=== PATIENT | male | born 1965 | race Caucasian/White ===

== ENCOUNTER 2019-12-08 10:38 | Emergency (ER) | payer SELFPAY ==
--- NOTE | 2019-12-08 10:59 | XRR_ITS ---
PROCEDURE INFORMATION: Exam: XR Right Hip with Pelvis when Performed Exam date and time: 12/08/2019 11:33 AM Age: 54 years old Clinical indication: Injury or trauma; Initial encounter; Sprain or strain; Right; Hip; Prior surgery; Patient HX: Moving furniture, now non weight bearing and foot numbness TECHNIQUE: Imaging protocol: XR Right hip with pelvis when performed. Views: 1 view. COMPARISON: CR Arthrogram Hip RIGHT [id number] 01/23/2014 1:40 PM FINDINGS: Bones/joints: Right hip arthroplasty. No acute bony injury or malalignment in the visualized right hip. Soft tissues: Metallic zipper. Other findings: Status post herniorrhaphy. XR/XR hip RT 2-3V wo/w pel* [id number] IMPRESSION: Right hip arthroplasty. No acute bony injury or malalignment in the visualized right hip.
[2019-12-08 11:13] VITALS: BP 164/97; PULSE 86; RESP 14; TEMP 36.9; O2SAT 99; BMI 34.8
--- NOTE | 2019-12-08 11:19 | W.ED.EXTPRO ---
HPI - Extremity Problem General: Chief complaint: Extremity Problem,Nontraumatic Stated complaint: RIGHT HIP PAIN Time Seen by Provider: 12/08/19 11:19 History of Present Illness: HPI Narrative: Patient with a history of hip replacement right side. Patient states he was lifting some the other day then felt pain in his right hip is progressively got worse now radiating down his leg has had muscle cramps in the right upper thigh and now has some tingling in his toes. Denies any low back pain at this time MD Complaint: extremity pain and joint pain (Right hip) Onset (ago): week(s) Pain Consistency: constant Location: right and lower extremity Severity scale (1-10): 6 Quality: aching Radiation: distal Relieving factors: immobilization and rest Exacerbating factors: range of motion and weight bearing Associated symptoms: Reports no associated symptoms; Deny chest pain, fever(s) or rash Review of Systems Const: Denies: fever(s), chills or body aches Eyes: Denies: change in vision or blurry vision ENMT: Denies: throat pain or nasal congestion Card: Denies: chest pain or dyspnea on exertion Resp: Denies: dyspnea, productive cough or non-productive cough GI: Denies: abdominal pain, nausea or vomiting : Denies: difficulty urinating Musc: Reports: joint pain (Right hip) and muscle cramps (Right thigh); Denies: extremity pain Skin/Breast: Denies: rash Neuro: Denies: headache(s) Psych: Denies: anxiety or depression Kartik/Lymph: Denies: easy bruising Physical Exam Const: COMMON NORMALS: no acute distress, average body habitus and patient oriented x3 HENMT: COMMON NORMALS: normocephalic HEAD & SCALP: normal to inspection and normocephalic FACE & SINUS: normal facial exam Eye: COMMON NORMALS: conjunctivae normal GENERAL EYE: appearance normal, both eyes and all related structures CONJUNCTIVA: Yes conjunctivae normal Neck/C-Spine: COMMON NORMALS: no JVD Chest: COMMONS NORMALS: normal inspection of the chest Resp: COMMON NORMALS: normal respiratory effort and clear to auscultation bilaterally AUSCULTATION: clear to auscultation bilaterally Cardio: COMMON NORMALS: no JVD, regular rate and regular rhythm RATE: regular rate RHYTHM: regular rhythm GI: COMMON NORMALS: Normal to inspection, nondistended, normoactive bowel sounds present Extremity: NARRATIVE EXTREMITY EXAM: Pain to right hip joint with range of motion and straight leg lift is able to lift both legs at the same time but causes pain in the right hip neurovascular status is fine distal of this pain Neuro: COMMON NORMALS: patient oriented x3 Course Vital Signs: Vital signs: Vital Signs Temperature 98.4 F 12/08/19 11:13 Pulse Rate 77 12/08/19 11:57 Respiratory Rate 14 12/08/19 11:13 Blood Pressure 142/81 12/08/19 11:57 Pulse Oximetry 98 12/08/19 11:57 Discharge Plan Discharge Patient Disposition: Home, Self-Care Clinical Impression: Sciatic leg pain Condition: Stable Prescriptions: New ibuprofen 800 mg tablet 800 mg PO TID PRN (Reason: pain) Qty: 20 RF: 0 Discharge Orders: Discharge Order (Routine); Ordered 12/08/19 Ordered By: Noe Yang Referrals: Yaz Villalta MD [Primary Care Provider] - Discharge Diet: Usual diet Discharge Activity: Increase activity as tolerated Patient Instructions: Sciatica (ED) Activity Restrictions/Additional Instructions: Follow-up with medical provider as directed. Take medications as prescribed. Return to the ER or your medical provider if condition worsens. Please read and understand discharge instructions. If any questions ask please. No heavy lifting x4 weeks follow-up with your family doctor and see back in MRI if pain continues Coding Level of Care Code ED Physical Therapy Supervisor for Madeleine Fwd Exam Comprehensive
[2019-12-08] MEDS: ketorolac 60 mg/2 mL INJ IM (11:41)
[2019-12-08 11:57] VITALS: BP 142/81; PULSE 77; O2SAT 98
[2019-12-08] MEDS: methylPREDNISolone (DEPO) 80 MG/ML INJ 1 mL IM (12:19)
[2019-12-08 12:41] VITALS: BP 160/91; PULSE 78; O2SAT 96
== END 2019-12-08 12:41 | disposition home or self-care (01) ==
PROVIDERS: Emergency Provider Nurse Practitioner Family; PCP Family Medicine
DX: M54.30 Sciatica, unspecified side (principal)
CPT/HCPCS: 12345; 73502; 96372; 99281; 99283; J1040; J1885

== ENCOUNTER 2019-12-12 11:35 | Emergency (ER) | payer SELFPAY ==
[2019-12-12 12:03] VITALS: BP 142/88; PULSE 98; RESP 16; TEMP 36.9; O2SAT 97; BMI 34.8
--- NOTE | 2019-12-12 12:12 | W.ED.EXTPRO ---
HPI - Extremity Problem General: Chief complaint: Extremity Problem,Nontraumatic Stated complaint: RIGHT HIP AND LEG PAIN Time Seen by Provider: 12/12/19 12:09 History of Present Illness: HPI Narrative: Patient is a 54-year-old male who comes to the ED with lower back pain that is radiating down the right leg. Patient was seen here in the ED on 12/07 and diagnosed with sciatic leg pain. Symptoms started approximately 2 weeks ago and he denies any known acute trauma, accident or injury to cause back pain. Patient states he thinks he got up from lifting some stuff around the house. Pain has progressed in the last 5 days. Patient returns to the ED due to worsening pain and numbness into the right leg. He says his pain is currently a 10 out of 10 he describes having numbness down to his feet and some numbness in the upper thigh/groin. He can hardly walk to go to the bathroom in his house. Any bladder or bowel incontinence, or pelvic anesthesia. He does endorse some numbness into the right leg. He states the numbness in the right leg is new since his last visit 4 days ago. Associated symptoms: Deny chest pain, fever(s) or rash Review of Systems Const: Denies: fever(s), chills or fatigue Eyes: Denies: change in vision or eye discomfort ENMT: Denies: throat pain, odynophagia, nasal discharge or nasal congestion Card: Denies: chest pain, palpitations, edema, swelling of feet/ankles, dyspnea on exertion or orthopnea Resp: Denies: dyspnea, productive cough or non-productive cough GI: Denies: abdominal pain, nausea, vomiting, diarrhea, constipation, fecal incontinence or hematochezia : Denies: flank pain, difficulty urinating, dysuria, urinary incontinence or hematuria Musc: Reports: back pain and extremity pain (right leg); Denies: neck pain or extremity swelling Skin/Breast: Denies: rash or new lesions Neuro: Reports: numbness in extremities (numbness in right leg (foot)); Denies: headache(s) or weakness in extremities PFS ED PFSH: Social History Smoking and tobacco status: current every day smoker cigarettes Alcohol intake: never Physical Exam Const: COMMON NORMALS: patient oriented x3 and alert HENMT: COMMON NORMALS: normocephalic HEAD & SCALP: normocephalic MOUTH: Normal oral and palatal mucosa present THROAT: posterior oropharynx normal and uvula midline Eye: COMMON NORMALS: Equal, round and reactive pupils present PUPIL: Yes Equal, round and reactive pupils present Neck/C-Spine: COMMON NORMALS: supple GENERAL: Yes normal visual inspection Resp: COMMON NORMALS: normal respiratory effort, No retractions, No use of accessory muscles and clear to auscultation bilaterally AUSCULTATION: clear to auscultation bilaterally Cardio: COMMON NORMALS: regular rate, regular rhythm, S1 normal heart sound present, S2 normal heart sound present, No gallops present (Cardio), No clicks present (Cardio), No murmurs present (Cardio) and Peripheral pulses 2+ throughout RATE: regular rate RHYTHM: regular rhythm HEART SOUNDS: S1 normal heart sound present and S2 normal heart sound present PERIPHERAL PULSES: Peripheral pulses 2+ throughout GI: COMMON NORMALS: Normal to inspection, nondistended, normoactive bowel sounds present, Soft to palpation, non-tender and no masses INSPECTION: Yes central obesity PALPATION: Yes Soft to palpation : COMMON NORMALS: Yes no CVA tenderness BLADDER/KIDNEY EXAM: Yes no CVA tenderness Back/Pelvis: COMMON NORMALS: no CVA tenderness LUMBAR SPINE/LOWER BACK: Yes paraspinal muscle tenderness and Yes straight leg raise positive right Extremity: COMMON NORMALS: normal to inspection and no pedal edema Neuro: COMMON NORMALS: patient oriented x3 and moves all extremities SENSORIUM/ORIENTATION: Yes alert Skin: COMMON NORMALS: no rashes or lesions noted GENERAL SKIN EXAM: no rashes or lesions noted and dry skin Course Vital Signs: Vital signs: Vital Signs Temperature 98.4 F 12/12/19 12:03 Pulse Rate 78 12/12/19 15:20 Respiratory Rate 18 12/12/19 15:20 Blood Pressure 142/79 12/12/19 15:20 Pulse Oximetry 98 12/12/19 15:20 MDM - Extremity (Nontraumatic) MDM Narrative: Medical decision making narrative: pt is a 54 y/o male that comes to the ED with lumbar pain with pain and numbness down right leg. denies any bladder/bowel incontinence or pelvic anesthesia. Pt was seen here in the ED on 12/07 and his biggest change in symptoms are increase in pain down right leg and numbness in foot of right leg is new. CT lumbar spine was showed no acute fractures, but L4-5 bulging disc with moderate to severe foraminal narrowing. Pt was given decadron IM while here in the ED and sent home with a medrol dose mustapha. I put an order in with case management for pt to be referred to neurosurgeon. return to ED if symptoms worsen. pt understood and agreed with plan. Imaging Data^: Other CT: Attestation: I personally reviewed and interpreted this imaging study as follows: Radiologist's impression: [facility] [address] [place] [address] CT Scan Report Signed Patient: Kristopher Marin Unit #: [id number] : 1965 Age/Sex: 54 / M ADM Date: 12/12/19 Loc: ER Room/Bed: Attending Dr: Ordering Provider/Ordering MD: Sam Villela Date of Service: 12/12/19 Procedure(s): CT lumbar spine wo con* [id number] Accession Number(s): [id number] Report Number: [id number] WS: [id number] CT LUMBAR SPINE TECHNIQUE: Noncontrast CT of the lumbar spine with coronal and sagittal reformatted images. CLINICAL INFORMATION: lumbar pain with numbness down right Leg COMPARISON: None. DLP: 2592.[address] scans at [facility] use at least one of these dose optimization techniques: automated exposure control; mA and/or kV adjustment per patient size (includes targeted exams where dose is matched to clinical indication); or iterative reconstruction. FINDINGS: Mild lumbar curve. No acute compression. No acute compression fractures. Disc bulging worse L4-L5 and L5-S1. L1-L2: Normal. L2-L3: No significant disc bulging. Moderate facet arthropathy. Spinal canal and foramen are patent. L3-L4: Mild annular bulging with a small central protrusion. Slight narrowing of the subarticular recess bilaterally. Moderate facet arthropathy. Foramen are patent. L4-L5: Mild disc bulging with a small central protrusion. Moderate central canal stenosis with impingement traversing L5 nerve roots bilaterally. Suggestion of disc material right subarticular recess. Moderate facet arthropathy ligament flavum hypertrophy. Moderate right greater than left foraminal narrowing. L5-S1: Small central shallow protrusion. Slight effacement of ventral thecal sac. Mild right and no significant left foraminal narrowing. Spinal canal is patent. Moderate facet arthropathy. Visualized pelvic bony structures: Normal. Paravertebral soft tissues: Normal. Attempted notification KOURTNEY Napier at 12/12/2019 2:[address]/CT lumbar spine wo con* [id number] IMPRESSION: 1. Mild lumbar curve convex left. No acute compression fractures. 2. Central disc protrusion L4-5 with moderate to severe central canal stenosis. Suggestion of disc material in the right subarticular recess. This can be further evaluated MRI. 3. Moderate right and mild left L4-5 foraminal narrowing. Impingement on the exiting right L4 nerve root 4. Tiny central protrusion L5-S1 with slight effacement of ventral thecal sac. Mild right foraminal narrowing. Dictated By: Brayden Reyes MD Signed By: Brayden Reyes MD Signed Date/Time: 12/12/191434 DD/ 24 Discharge Plan Discharge Patient Disposition: Home, Self-Care Clinical Impression: Bulging lumbar disc, Sciatic leg pain Condition: Stable Prescriptions: New Medrol (Mustapha) 4 mg tablets,dose pack See Rx Instructions .ROUTE .COMPLEX Qty: 21 RF: 0 No Action ibuprofen 800 mg tablet 800 mg PO TID PRN (Reason: pain) Qty: 20 RF: 0 Discharge Orders: Discharge Order (Routine); Ordered 12/12/19 Ordered By: Sam Villela Referrals: Yaz Villalta MD [Primary Care Provider] - Discharge Diet: Regular Discharge Activity: Increase activity as tolerated and Limit activity as instructed Patient Instructions: Lumbar Radiculopathy (ED) Activity Restrictions/Additional Instructions: Follow-up with medical provider in the next 7 days. Case management should be contacting you in the next several days to set up an appointment with neurosurgery. Take medications as prescribed. Continue taking ibuprofen as well to help with pain. Rest, stretch lower back daily and apply ice and/or heat for relief. return to the ER or your medical provider if condition worsens. Please read and understand discharge instructions. If any questions, please ask. Discharge Date/Time: 12/12/19 15:21 Coding Level of Care Code ED Senior Scrum Master for Chg Fwd Exam Comprehensive
[2019-12-12 12:36] VITALS: RESP 18
--- NOTE | 2019-12-12 12:51 | CT_ITS ---
WS: [id number] CT LUMBAR SPINE TECHNIQUE: Noncontrast CT of the lumbar spine with coronal and sagittal reformatted images. CLINICAL INFORMATION: lumbar pain with numbness down right Leg COMPARISON: None. DLP: 2592.[address] scans at [facility] use at least one of these dose optimization techniques: automat ed exposure control; mA and/or kV adjustment per patient size (includes targeted exams where dose is matched to clinical indication); or iterative reconstruction. FINDINGS: Mild lumbar curve. No acute compression. No acute compression fractures. Disc bulging worse L4-L5 and L5-S1. L1-L2: Normal. L2-L3: No significant disc bulging. Moderate facet arthropathy. Spinal canal and foramen are patent. L3-L4: Mild annular bulging with a small central protrusion. Slight narrowing of the subarticular rec ess bilaterally. Moderate facet arthropathy. Foramen are patent. L4-L5: Mild disc bulging with a small central protrusion. Moderate central canal stenosis with imping ement traversing L5 nerve roots bilaterally. Suggestion of disc material right subarticular recess. M oderate facet arthropathy ligament flavum hypertrophy. Moderate right greater than left foraminal charlie rowing. L5-S1: Small central shallow protrusion. Slight effacement of ventral thecal sac. Mild right and no s ignificant left foraminal narrowing. Spinal canal is patent. Moderate facet arthropathy. Visualized pelvic bony structures: Normal. Paravertebral soft tissues: Normal. Attempted notification KOURTNEY Napier at 12/12/2019 2:[address]/CT lumbar spine wo con* [id number] IMPRESSION: 1. Mild lumbar curve convex left. No acute compression fractures. 2. Central disc protrusion L4-5 with moderate to severe central canal stenosis . Suggestion of disc material in the right subarticular recess. This can be fur ther evaluated MRI. 3. Moderate right and mild left L4-5 foraminal narrowing. Impingement on the e xiting right L4 nerve root 4. Tiny central protrusion L5-S1 with slight effacement of ventral thecal sac. Mild right foraminal narrowing.
[2019-12-12] MEDS: HYDROcodone-acetaminophen 7.5-325 mg Tablet 1 TAB PO (13:11)
[2019-12-12] MEDS: dexamethasone 10 mg/mL INJ IM (13:12)
[2019-12-12 14:07] VITALS: RESP 18
--- NOTE | 2019-12-12 14:14 | PC.NURSE ---
WHILE AT BEDSIDE ASKED PT IF IT WAS OKAY TO GIVE OUT PERSONAL INFORMATION FOR PEOPLE CALLING THAT IDENTIFIED FAMILY. PT STATED, THAT'S FINE . INFORMED DORIAN SAMPSON OF PT PRESENCE AND CONDITION IN THE ER.
[2019-12-12 15:20] VITALS: BP 142/79; PULSE 78; RESP 18; O2SAT 98
--- NOTE | 2019-12-13 13:35 | DCPLANNER ---
Addendum entered by Yuko Rodríguez 12/19/19 11:57: Patient called correctional case records supervisor left message for correctional case records supervisor to call patient about neuro referral. regional program manager called phone number [phone], left a voicemail for patient to return case packer phone call. regional program manager also called phone number [phone], there was no answer at this number, and correctional case records supervisor left a message for patient to return case packer phone call. Original Note: regional program manager had message to schedule a follow up appointment for patient with neuro surgery. regional program manager called patient, to discuss who patient would like for correctional case records supervisor to make the referral for patient to, since [facility] [place] longer has a provider for neuro surgery. regional program manager called [phone], unable to speak with patient at this time, a voicemail was left for patient to return case packer phone call.
--- NOTE | 2019-12-19 15:18 | DCPLANNER ---
manager agriculture did make a referral for patient to the new spine physician that will be at the ortho clinic. manager agriculture spoke with Diana, gave clinic patients information. manager agriculture was told that patients information would be printed and reviewed. Patient has been added to the waiting list that has been started for physician. Clinic will call patient with appointment information.
--- NOTE | 2019-12-20 11:47 | DCPLANNER ---
Patient called patient case manager asking about referral to a neuro surgeon. manager of engineering informed patient that patient case manager made a referral for patient to the new spine physician that will be starting in February. manager of engineering was told that patient would like for patient case manager to refer patient to [place] to both [facility] and [facility] so that patient can see which one would be able to see him faster. manager of engineering faxed patients records to both [facility] and [facility], will call for appointment information.
--- NOTE | 2020-01-05 14:52 | DCPLANNER ---
human resources benefits manager called [facility] to confirm that a follow up appointment had been scheduled for patient. human resources benefits manager was told that an appointment had been scheduled for 01.04.20 -patient did not attend this appointment. human resources benefits manager called the [facility], [facility], to confirm if an appointment had been scheduled for patient, spring encaser was told that an appointment had been scheduled for , January 17, 2020 at 10:30 and patient was called with appointment information.
--- NOTE | 2020-03-01 13:36 | DCPLANNER ---
Patient had a follow up appointment scheduled for 02.17.[address] Hyde for [facility] [address] - patient did attend the appointment.
== END 2019-12-12 15:21 | disposition home or self-care (01) ==
PROVIDERS: Emergency Provider Physician Assistant; PCP Family Medicine
DX: M51.16 Intervertebral disc disorders with radiculopathy, lumbar region (principal); F17.210 Nicotine dependence, cigarettes, uncomplicated
CPT/HCPCS: 12345; 72131; 96372; 99281; 99283; J1100

== ENCOUNTER → 2022-04-14 10:02 | Outpatient (BNVA) | payer MEDICAID, SELFPAY | PROVIDERS: PCP Family Medicine; Visit Provider Physician Assistant | DX: M48.062 Spinal stenosis, lumbar region with neurogenic claudication (principal); M47.816 Spondylosis without myelopathy or radiculopathy, lumbar region; B07.0 Plantar wart | CPT/HCPCS: 72110; 99213 ==

== ENCOUNTER → 2022-04-30 08:17 | Outpatient (BNVA) | payer MEDICAID, SELFPAY | PROVIDERS: PCP Family Medicine; Visit Provider Podiatrist Foot & Ankle Surgery | DX: I73.9 Peripheral vascular disease, unspecified (principal); Q82.8 Other specified congenital malformations of skin; B35.1 Tinea unguium | CPT/HCPCS: 99204 ==

== ENCOUNTER 2022-06-03 12:33 | Outpatient (CLI) | payer MEDICAID, SELFPAY ==
--- NOTE | 2022-06-03 12:49 | CT_ITS ---
WS: [id number] LDCT LUNG CANCER SCREENING TECHNIQUE: Noncontrast CT of the chest with coronal and sagittal reformatted images. CLINICAL INFORMATION: NICOTINE DEPENDENCE, CIGARETTES COMPARISON: CT chest 2016 DLP: 83.79 mGy.cm DIvol: Mean CTDIvol: 1.60 (mGy) All CT scans at [facility] use at least one of these dose optimization techniques: automat ed exposure control; mA and/or kV adjustment per patient size (includes targeted exams where dose is matched to clinical indication); or iterative reconstruction. FINDINGS: Normal caliber thoracic aorta. Mild aortic calcification. No mediastinal or hilar lymphadenopathy. No axillary lymphadenopathy. Tiny nodule RIGHT upper lobe anteriorly measuring 3.8 mm. Diffuse fatty infiltration of the liver. Hepatomegaly. Partially visualized cholecystectomy clips. No rmal GE junction. Adrenal glands are normal. Mild thoracic curve. Mild thoracic kyphosis. A few calci fied granulomas. CT/CT lung screening [id number] IMPRESSION: LUNG-RADS: 2-Benign Appearance or Behavior FOLLOW UP: 12 Month: Continue annual screening with LDCT
== END 2022-06-03 12:34 | disposition home or self-care (01) ==
LOC: RAD 12:34
PROVIDERS: PCP Family Medicine; Visit Provider Family Medicine
DX: Z12.2 Encounter for screening for malignant neoplasm of respiratory organs (principal); F17.210 Nicotine dependence, cigarettes, uncomplicated
CPT/HCPCS: 71271

== ENCOUNTER 2022-06-05 06:51 | Outpatient (CLI) | payer MEDICAID, SELFPAY ==
--- NOTE | 2022-06-05 07:15 | MR_ITS ---
WS: [id number] MRI LUMBAR SPINE NONCONTRAST TECHNIQUE: Sagittal T1, T2 and STIR imaging. Axial T1 and T2 imaging. CLINICAL INFORMATION: pain COMPARISON: Outside MRI January 29, 2020 FINDINGS: Mild lumbar curve. No acute compression. Slight anterolisthesis L4 on L5. Small bilateral L4-L5 facet effusions. Mild to moderate central canal stenosis in the cervical spine district [employer] imaging at C5-C6 with a small central disc protrusion. Suggestion of myelomalacia in the cervical cord is level. Recommend further evaluation with cervical spine MRI. L1-L2: Normal. L2-L3: Mild facet arthropathy. Spinal canal and foramen are patent. L3-L4: Mild annular bulging with slight effacement of ventral thecal sac. Slight impingement traversi ng L4 nerve roots bilaterally. Mild facet arthropathy. Foramen are patent. Tiny annular fissure at th is level. L4-L5: Moderate central canal stenosis due to slight anterolisthesis in combination with disc bulging and facet arthropathy with ligamentum flavum hypertrophy. Moderate facet arthropathy. Mild to modera te RIGHT and no significant LEFT foraminal narrowing. L5-S1: No significant disc bulging. Mild facet arthropathy. Spinal canal and foramen are patent. Visualized pelvic bony structures: Normal. Paravertebral soft tissues: Normal. MR/MR lumbar spine wo con* [id number] IMPRESSION: No remarkable changes since January 29, 2020 1. Mild lumbar curve. No acute compression. 2. Moderate central canal stenosis L4-L5 with impingement on traversing L5 ner ve roots bilaterally. Slight anterolisthesis in combination with facet arthropa thy and ligamentum flavum hypertrophy. 3. Mild to moderate RIGHT L4-L5 foraminal narrowing. 4. Tiny shallow central protrusion L3-L4 with a tiny annular fissure. Slight e ffacement of ventral thecal sac. 5. Tiny central protrusion C5-C6 cervical spine [employer] imaging with mild to mod erate central canal stenosis. Suggestion of myelomalacia in the cervical cord a t this level. Recommend further evaluation with cervical spine MRI. 6. Small bilateral L4-L5 facet effusions compatible with synovitis. This can b e seen with instability.
== END 2022-06-05 06:52 | disposition home or self-care (01) ==
LOC: RAD 06:52
PROVIDERS: PCP Family Medicine; Visit Provider Physician Assistant
DX: M48.061 Spinal stenosis, lumbar region without neurogenic claudication (principal); M51.26 Other intervertebral disc displacement, lumbar region; M50.222 Other cervical disc displacement at C5-C6 level
CPT/HCPCS: 72148

== ENCOUNTER → 2022-07-30 08:46 | Outpatient (BNVA) | payer MEDICAID, SELFPAY | PROVIDERS: PCP Family Medicine; Visit Provider Physician Assistant | DX: M48.062 Spinal stenosis, lumbar region with neurogenic claudication (principal); M47.816 Spondylosis without myelopathy or radiculopathy, lumbar region; M40.50 Lordosis, unspecified, site unspecified | CPT/HCPCS: 72050 ==

== ENCOUNTER 2022-09-15 07:50 | Outpatient (CLI) | payer MEDICAID, SELFPAY ==
--- NOTE | 2022-09-15 08:00 | MR_ITS ---
WS: [id number] MRI CERVICAL SPINE NONCONTRAST TECHNIQUE: Sagittal T1, T2 and STIR imaging. Axial T2, gradient, and fiesta imaging. CLINICAL INFORMATION: M54.12 - Radiculopathy, cervical region COMPARISON: None. FINDINGS: Straightening of the normal cervical lordosis. Chronic myelomalacia in the cervical cord at C5-C6 wit h slight indentation on the cervical cord. 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 C2-C3: Disc osteophytic ridging. Mild facet arthropathy. Mild to moderate bilateral bony foraminal na rrowing. Mild central canal stenosis. C3-C4: Mild disc osteophyte complex with endplate ridging. Mild facet arthropathy. Moderate LEFT grea ter than RIGHT bony foraminal narrowing. Mild facet arthropathy. C4-C5: Mild disc bulging with osteophytic ridging. Moderate bilateral bony foraminal narrowing LEFT g reater than RIGHT. Mild to moderate facet arthropathy. Mild central canal stenosis. C5-C6: Shallow disc protrusion with indentation on cervical cord. Moderate central canal stenosis. Mo derate bilateral bony foraminal narrowing. Moderate facet arthropathy. C6-C7: Mild disc bulging with osteophytic ridging. Mild facet arthropathy. Mild to moderate bilateral foraminal narrowing. Mild facet arthropathy. C7-T1: Mild bilateral bony foraminal narrowing. Spinal canal is patent. Mild facet arthropathy. Visualized brain stem structures: Normal. Prevertebral soft tissues: Normal. MR/MR cervical spin wo con* [id number] IMPRESSION: 1. 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 2. Straightening of the normal cervical lordosis. Chronic myelomalacia in the cervical cord at C5-C6. 3. Moderate central canal stenosis at C5-C6 with shallow central disc protrusi on with slight indentation on cervical cord. 4. Mild central canal stenosis C2-C3, C3-C4, C4-C5. 5. Multilevel mild to moderate bony foraminal narrowing worse at bilateral C3- C4, bilateral C4-C5, bilateral C5-C6. 6. Mild to moderate facet arthropathy throughout the cervical spine.
== END 2022-09-15 07:51 | disposition home or self-care (01) ==
LOC: RAD 07:52
PROVIDERS: PCP Family Medicine; Visit Provider Anesthesiology Pain Medicine
DX: M47.812 Spondylosis without myelopathy or radiculopathy, cervical region (principal); M48.02 Spinal stenosis, cervical region; M50.122 Cervical disc disorder at C5-C6 level with radiculopathy
CPT/HCPCS: 72141

== ENCOUNTER → 2022-10-27 09:10 | Outpatient (BNVA) | payer MEDICAID, SELFPAY | PROVIDERS: PCP Family Medicine; Visit Provider Anesthesiology Pain Medicine | DX: M25.512 Pain in left shoulder (principal); Z98.890 Other specified postprocedural states | CPT/HCPCS: 73030 ==

== ENCOUNTER 2022-12-16 09:16 | Outpatient (CLI) | payer MEDICAID, SELFPAY ==
--- NOTE | 2022-12-16 09:26 | XR_ITS ---
WS: [id number] Exam: XR abdomen 3V [id number] Date/Time of Exam: 12/16/2022 9:37 AM Reason For Exam: RUQ ABDOMINAL PAIN No bowel obstruction or free air. No sign of organ enlargement. Signs of prior cholecystectomy. Posto perative changes in the pelvis which may be secondary to the surgical mesh. Partially visualized righ t total hip replacement. Vertebral compression deformities of the lower thoracic and upper lumbar spi pr XR/XR abdomen 3V [id number] IMPRESSION: 1. No acute abdominal finding. 2. Postoperative changes.
== END 2022-12-16 09:17 | disposition home or self-care (01) ==
PROVIDERS: PCP Family Medicine; Visit Provider Family Medicine
DX: R10.11 Right upper quadrant pain (principal); Z90.49 Acquired absence of other specified parts of digestive tract; Z96.641 Presence of right artificial hip joint
CPT/HCPCS: 74021

== ENCOUNTER → 2023-01-19 11:33 | Outpatient (BNVA) | payer MEDICAID, SELFPAY | PROVIDERS: PCP Family Medicine; Visit Provider Orthopaedic Surgery | DX: M47.12 Other spondylosis with myelopathy, cervical region (principal) | CPT/HCPCS: 72040 ==

== ENCOUNTER 2023-03-26 09:53 | Day surgery (SDC) | payer MEDICAID, SELFPAY ==
[2023-03-26 10:07] VITALS: BP 147/88; PULSE 95; RESP 18; TEMP 36.2; O2SAT 97; BMI 35.4
[2023-03-26] MEDS: sodium chloride 0.9% 1,000 ML 30 ML IV (10:12)
[2023-03-26 10:19] LABS: Glucose Point of Care 285 mg/dL (70-110)
--- NOTE | 2023-03-26 10:31 | W.PM.OPSFHP ---
Same Day Surgery H&P Indication for Procedure/HPI DATE OF PROCEDURE: March 26, 2023 CHIEF COMPLAINT/INDICATIONFOR SURGICAL PROCEDURE: reflux PREOP DIAGNOSIS: reflux PLANNED PROCEDURE: Operation Date: 03/26/23 11:15 Proposed Procedures p EGD 73619,K21.9(Not Applicable) - Taran Azevedo MD Medications/Allergies* Home Medications Medication Instructions Recorded Confirmed Type duloxetine 20 mg capsule,delayed 20 mg PO BID 04/14/22 03/24/23 History release lisinopril 10 mg tablet 10 mg PO DAILY 04/14/22 03/24/23 History metformin 500 mg tablet 500 mg PO BID 04/14/22 03/26/23 History omeprazole 40 mg capsule,delayed 40 mg PO DAILY 04/14/22 03/24/23 History release dulaglutide 3 mg/0.5 mL 3 mg SUBCUT DIRECTED 03/24/23 03/24/23 History subcutaneous pen injector (Trulicity) Allergies/Adverse Reactions Allergy/AdvReac Type Severity Reaction Status Date / Time morphine Allergy ALGY-Rash Verified 03/24/23 12:29 Penicillins Allergy ALGY-Rash Verified 03/24/23 12:29 contrast media Allergy ALGY-Anaphy Uncoded 03/10/23 13:09 laxis Current Medications: Generic Name Dose Route Start Last Admin Trade Name Guille PRN Reason Stop Dose Admin Sodium Chloride 1,000 mls @ 30 mls/hr 03/26/23 10:00 03/26/23 10:12 Sodium Chloride 0.9% IV 03/27/23 09:59 30 mls/hr .Q24H MARCUS Administration Pertinent History/Comorbid Conditions* Medical History (Updated 02/15/23 @ 20:16 by Taran Nugent DPM) Diabetes Social History Smoking and tobacco/nicotine status: current every day tobacco/nicotine user cigarettes Packs smoked per day: 1 Alcohol intake: current Alcohol intake frequency: holidays/special occasions only Substance/Drug Use: never Pertinent Exam Findings alert, oriented x 3, clear to auscultation bilaterally and regular rate & rhythm Recommendations Surgery/Procedure today Coding Level of Care Code Acute Code for Chg Fwd Diagnoses
--- NOTE | 2023-03-26 11:08 | ANES.PREANE2 ---
Pre-Anesthetic Assessment Height/Weight: Height 1.8 m Weight 115.212 kg Temp Pulse Resp BP Pulse Ox O2 Del Method 97.2 F L 95 18 147/88 97 Room Air 03/26/23 10:07 03/26/23 10:07 03/26/23 10:07 03/26/23 10:07 03/26/23 10:07 03/26/23 10:07 Preop Diagnosis: reflux Operation Date: 03/26/23 11:15 Proposed Procedures p EGD 80180,K21.9(Not Applicable) - Taran Azevedo MD Familial anesthetic complications: none Was Beta Edward taken within 24 hours: N/A Last intake: Intake Last Liquid Date 03/25/23 Last Liquid Time 23:59 Last Solid Date 03/25/23 Last Solid Time 22:30 Social Tobacco (1 ppd) cannabis weekly hasn't smoked in 3 days. Exam alert, oriented x 3, clear to auscultation bilaterally and regular rate & rhythm Airway Submandibular: within normal limits Cervical ROM: within normal limits Mallampati: Class II Dentition: false (no teeth no dentures present) Pulmonary None reported denies COPD 1ppd x 43 years CV/HEM Hypertension None reported Hepatic None reported GI Gastroesophageal Reflux Disease (no symptoms ) abdominal pain Metabolic Diabetes Mellitus and Morbid Obesity on GLP1 inhibitor last taken 03/13 BG - 285 hasn't taken metformin today or last night (bid dosing) Musc/skel Lower Back Pain Neuropsych None reported Anesthetic Plan ASA status: 3 Anesthesia: MAC Medications/Allergies Home Medications Medication Instructions Recorded Confirmed Last Taken Type duloxetine 20 mg capsule,delayed 20 mg PO BID 04/14/22 03/24/23 03/25/23 History release lisinopril 10 mg tablet 10 mg PO DAILY 04/14/22 03/24/23 03/25/23 History metformin 500 mg tablet 500 mg PO BID 04/14/22 03/26/23 03/25/23 History omeprazole 40 mg capsule,delayed 40 mg PO DAILY 04/14/22 03/24/23 03/25/23 History release gabapentin 300 mg capsule 300 mg PO TID pain #90 caps 08/25/22 03/24/23 03/25/23 Rx sucralfate 1 gram tablet (Carafate) 1 g PO TID 7 days #21 tabs 08/03/24/23 03/25/23 Rx diabetic dave morales with 3 inserts #1 ea 02/11/23 03/24/23 03/25/23 Rx dulaglutide 3 mg/0.5 mL 3 mg SUBCUT DIRECTED 03/24/23 03/24/23 03/13/23 History subcutaneous pen injector (Trulicity) Allergies Allergy/AdvReac Type Severity Reaction Status Date / Time morphine Allergy ALGY-Rash Verified 03/24/23 12:29 Penicillins Allergy ALGY-Rash Verified 03/24/23 12:29 contrast media Allergy ALGY-Anaphy Uncoded 03/10/23 13:09 laxis Current Medications Generic Name Dose Route Start Last Admin Trade Name Freq PRN Reason Stop Dose Admin Sodium Chloride 1,000 mls @ 30 mls/hr 03/26/23 10:00 03/26/23 10:12 Sodium Chloride 0.9% IV 03/27/23 09:59 30 mls/hr .Q24H MARCUS Administration PFSH Anesthesia Medical History Diabetes Social History Smoking and tobacco/nicotine status: current every day tobacco/nicotine user cigarettes Packs smoked per day: 1 Alcohol intake: current Alcohol intake frequency: holidays/special occasions only Substance/Drug Use: never Data Anesthesia Cardiac Studies: No Data to Display
[2023-03-26 12:40] VITALS: BP 120/78; PULSE 85; RESP 18; TEMP 36.3; O2SAT 94
[2023-03-26 12:55] VITALS: BP 122/78; PULSE 79; RESP 18; TEMP 36.3; O2SAT 95
[2023-03-26 13:10] VITALS: BP 120/74; PULSE 84; RESP 16; O2SAT 96
== END 2023-03-26 13:28 | disposition home or self-care (01) ==
PROVIDERS: PCP Family Medicine; Visit Provider Surgery
PROC: 0DJ08ZZ Inspection of Upper Intestinal Tract, Via Natural or Artificial Opening Endoscopic (ICD-10-PCS; CPT 43235; principal; 2023-03-26 11:15)
DX: K21.9 Gastro-esophageal reflux disease without esophagitis (principal); K29.50 Unspecified chronic gastritis without bleeding; F17.210 Nicotine dependence, cigarettes, uncomplicated; E11.9 Type 2 diabetes mellitus without complications; Z79.84 Long term (current) use of oral hypoglycemic drugs; I10 Essential (primary) hypertension; E66.01 Morbid (severe) obesity due to excess calories; Z68.35 Body mass index [BMI] 35.0-35.9, adult
CPT/HCPCS: 36416; 43239; 82962; 88305; 88342; J2704; J7030

== ENCOUNTER → 2023-04-29 14:13 | Outpatient (BNVA) | payer MEDICAID, SELFPAY | PROVIDERS: PCP Family Medicine; Visit Provider Surgery | DX: R10.9 Unspecified abdominal pain (principal); Z51.81 Encounter for therapeutic drug level monitoring; Z79.1 Long term (current) use of non-steroidal anti-inflammatories (NSAID); K21.9 Gastro-esophageal reflux disease without esophagitis | CPT/HCPCS: 36415; 80048; 80076; 83690; 85025 ==

== ENCOUNTER 2023-04-30 07:37 | Outpatient (CLI) | payer MEDICAID, SELFPAY ==
--- NOTE | 2023-04-30 07:45 | US_ITS ---
WS: [id number] Complete ABDOMINAL ULTRASOUND HISTORY: abdominal pain COMPARISON: None available. Liver: 21.9 cm in length. Markedly enlarged liver with diffuse marked attenuation and variable echoge nicity. Coarse echotexture. Loss of the normal portal triads. Portal Vein: Not well visualized. Gallbladder: Prior cholecystectomy CBD: Not visualized. Pancreas: Not visualized. Right kidney: 11.2 cm x 5.8 x 6.6 cm. Cortex:1.6 cm. Poorly visualized kidney. No hydronephrosis. Mass would be difficult to exclude. Left kidney: 12.8 cm x 4.1 cm x 5.2 cm. Cortex: 2.3 cm. Poorly visualized kidney. Mass would be difficult to exclude. No hydronephrosis. Spleen: Normal size. Aorta and IVC: Not visualized. Impression: 1. Technically very difficult and limited evaluation of the abdominal ultrasound due to patient's bod y habitus. 2. Prior cholecystectomy. 3. No hydronephrosis. 4. Markedly enlarged liver and hepatic steatosis. It would be difficult to exclude mass or bile duct dilatation. 5. Poorly visualized pancreas, aorta. Common bile duct is not visualized either.
== END 2023-04-30 07:38 | disposition home or self-care (01) ==
LOC: RAD 07:37
PROVIDERS: PCP Family Medicine; Visit Provider Surgery
DX: R10.9 Unspecified abdominal pain (principal); R16.0 Hepatomegaly, not elsewhere classified; K76.0 Fatty (change of) liver, not elsewhere classified
CPT/HCPCS: 76700

== ENCOUNTER → 2023-06-17 08:20 | Outpatient (BNVA) | payer MEDICAID, SELFPAY | PROVIDERS: PCP Family Medicine; Visit Provider Podiatrist Foot & Ankle Surgery | DX: M79.671 Pain in right foot (principal); E11.8 Type 2 diabetes mellitus with unspecified complications; B35.1 Tinea unguium; I73.9 Peripheral vascular disease, unspecified; Q82.8 Other specified congenital malformations of skin; M79.672 Pain in left foot; Z79.84 Long term (current) use of oral hypoglycemic drugs | CPT/HCPCS: 73630 ==

== ENCOUNTER 2023-06-24 07:03 | Outpatient (CLI) | payer MEDICAID, SELFPAY ==
--- NOTE | 2023-06-24 08:00 | CT_ITS ---
WS: [id number] CT ABDOMEN PELVIS TECHNIQUE: Noncontrast CT of the abdomen and pelvis with coronal and sagittal reformatted images. CLINICAL INFORMATION: R10.9 - Unspecified abdominal pain COMPARISON: CT 2016 DLP: 921.[address] scans at [facility] use at least one of these dose optimization techniques: automated e xposure control; mA and/or kV adjustment per patient size (includes targeted exams where dose is matc hed to clinical indication); or iterative reconstruction. FINDINGS: Lung bases are well aerated. Hepatomegaly. Diffuse fatty infiltration of the liver. Cholecystectomy. Normal GE junction. Food products in the stomach. Mild fatty atrophy of the pancreas. Adrenal glands are normal. No hydronephrosis in either kidney. No obstructing renal or ureteral calculi. RIGHT NAHEED d egrades some images in the pelvis. Prostate calcification. Prostate measures 3.9 cm. Fat-containing inguinal hernias. Evidence of prior ventral abdominal wall hernia mesh repair. Diastases of the rectus abdominis. Normal sigmoid colon. N o evidence of high-grade small or large bowel obstruction. Moderate central canal stenosis L4-5. IMPRESSION: 1. Prior cholecystectomy. 2. Hepatomegaly with diffuse fatty filtration of the liver. 3. No hydronephrosis in either kidney. 4. Prior lower ventral abdominal wall and pelvic mesh hernia repair. 5. Small fat-containing inguinal hernias.
[2023-06-24] MEDS: barium sulfate 450 mL Oral Susp PO (09:05)
== END 2023-06-24 07:04 | disposition home or self-care (01) ==
LOC: RAD 07:03
PROVIDERS: PCP Family Medicine; Visit Provider Surgery
DX: R10.9 Unspecified abdominal pain (principal); Z90.49 Acquired absence of other specified parts of digestive tract; K76.0 Fatty (change of) liver, not elsewhere classified; R16.0 Hepatomegaly, not elsewhere classified; Z98.890 Other specified postprocedural states; K40.90 Unilateral inguinal hernia, without obstruction or gangrene, not specified as recurrent
CPT/HCPCS: 74176

== ENCOUNTER 2023-09-02 09:54 | Outpatient (CLI) | payer MEDICAID, SELFPAY ==
--- NOTE | 2023-09-02 10:00 | NM_ITS ---
WS: [id number] NUCLEAR MEDICINE GASTRIC STUDY CLINICAL INFORMATION: STOMACH PAIN TECHNIQUE: Following oral ingestion of cooked egg mixed with 0.97 mCi technetium 99m sulfur colloid, anterior images of the stomach were obtained over the course of 90 minutes. Activity curve was perfor med over the course of 90 minutes with linear regression analysis. COMPARISON: None. FINDINGS: Ingestion of cooked egg mixture Delayed gastric emptying with T1 half emptying 312 minutes 12% emptying at 47 minutes 21% emptying at 120 minutes IMPRESSION: Delayed gastric emptying. Recommend correlation with gastroparesis. *Normal median T1 half 90 minutes for solid egg meal (45-110 minutes). Delayed gastric retention is defined as 90% retained at 1 hour, 60% at 2 hours, 30% at 3 hours, and 10% at 4 hours (normal percent gastric retention is 37-90% at 1 hour, 30-60% at 2 hours, and 0-10% a t 4 hours).
== END 2023-09-02 09:55 | disposition home or self-care (01) ==
LOC: RAD 09:55
PROVIDERS: PCP Family Medicine; Visit Provider Nurse Practitioner Family
DX: R10.9 Unspecified abdominal pain (principal)
CPT/HCPCS: 78264; A9541

== ENCOUNTER → 2023-10-11 11:28 | Outpatient (BNVA) | payer MEDICAID, SELFPAY | PROVIDERS: PCP Family Medicine; Visit Provider Anesthesiology Pain Medicine | DX: M25.522 Pain in left elbow | CPT/HCPCS: 73070 ==

== ENCOUNTER → 2023-10-18 07:42 | Outpatient (BNVA) | payer MEDICAID, SELFPAY | PROVIDERS: PCP Family Medicine; Visit Provider Podiatrist Foot & Ankle Surgery | DX: I73.9 Peripheral vascular disease, unspecified; Q82.8 Other specified congenital malformations of skin; E11.69 Type 2 diabetes mellitus with other specified complication; L84 Corns and callosities; L60.3 Nail dystrophy; Z79.84 Long term (current) use of oral hypoglycemic drugs | CPT/HCPCS: 11056; 11721 ==

== ENCOUNTER → 2023-11-10 09:31 | Outpatient (BNVA) | payer MEDICAID, SELFPAY | PROVIDERS: PCP Family Medicine; Visit Provider Anesthesiology Pain Medicine | DX: M48.062 Spinal stenosis, lumbar region with neurogenic claudication; M47.26 Other spondylosis with radiculopathy, lumbar region; M47.816 Spondylosis without myelopathy or radiculopathy, lumbar region; M25.522 Pain in left elbow | CPT/HCPCS: 99214 ==

== ENCOUNTER → 2023-12-20 07:49 | Outpatient (BNVA) | payer MEDICARE, MEDICAID, SELFPAY | PROVIDERS: PCP Family Medicine; Visit Provider Podiatrist Foot & Ankle Surgery | DX: L60.3 Nail dystrophy (principal); I73.9 Peripheral vascular disease, unspecified; Q82.8 Other specified congenital malformations of skin; E11.69 Type 2 diabetes mellitus with other specified complication; Z79.84 Long term (current) use of oral hypoglycemic drugs | CPT/HCPCS: 11721 ==

== ENCOUNTER 2024-02-21 08:47 | Outpatient (CLI) | payer MEDICARE, MEDICAID, SELFPAY ==
--- NOTE | 2024-02-21 08:49 | CT_ITS ---
WS: [id number] LDCT LUNG CANCER SCREENING HISTORY: NICOTINE DEPENDENCE,CIGARETTES TECHNIQUE: Axial imaging performed from the apices to 1 cm below the costophrenic angles. Coronal and sagittal reformats are submitted with axial MIP series. All CT scans at [facility] use at least one of these dose optimization techniques: automated exposure control; mA and/or kV adjustment per patient size (includes targeted exams where dose is matched to clinical indication); or iterativ e reconstruction. DLP: 113.40 mGy.cm DIvol: Mean CTDIvol: 2.80 (mGy) COMPARISON: 06/03/2022 Diagnostic quality: Satisfactory Lungs: Mild pulmonary hyperexpansion. No new or enlarging mass or nodule. Reidentified is the 3 mm no dule anterior RIGHT upper lobe. There are a few benign gas granulomatous. Mild groundglass attenuatio n centrally. No endobronchial lesions. Heart: Normal size heart with no pericardial effusion.. Other findings: Mild atherosclerosis aorta. Normal size pulmonary artery. No adenopathy. Hepatic stea tosis. Visualized adrenal glands are negative. Mild thoracic spondylosis. CT/CT lung screening [id number] IMPRESSION: LUNG-RADS: 2-Benign Appearance or Behavior FOLLOW UP: 12 Month: Continue annual screening with LDCT OTHER FINDINGS (S MODIFIER): None.
== END 2024-02-21 08:48 | disposition home or self-care (01) ==
LOC: RAD 08:48
PROVIDERS: PCP Family Medicine; Visit Provider Family Medicine
DX: Z12.2 Encounter for screening for malignant neoplasm of respiratory organs (principal); F17.210 Nicotine dependence, cigarettes, uncomplicated; R91.1 Solitary pulmonary nodule; K76.0 Fatty (change of) liver, not elsewhere classified; M47.814 Spondylosis without myelopathy or radiculopathy, thoracic region
CPT/HCPCS: 71271

== ENCOUNTER → 2024-03-07 07:55 | Outpatient (BNVA) | payer MEDICARE, MEDICAID, SELFPAY | PROVIDERS: PCP Family Medicine; Visit Provider Podiatrist Foot & Ankle Surgery | DX: L60.3 Nail dystrophy (principal); I73.9 Peripheral vascular disease, unspecified; Q82.8 Other specified congenital malformations of skin; E11.69 Type 2 diabetes mellitus with other specified complication; Z79.84 Long term (current) use of oral hypoglycemic drugs | CPT/HCPCS: 11721 ==

== ENCOUNTER → 2024-05-10 07:56 | Outpatient (BNVA) | payer MEDICARE, MEDICAID, SELFPAY | PROVIDERS: PCP Family Medicine; Visit Provider Podiatrist Foot & Ankle Surgery | DX: L60.3 Nail dystrophy (principal); I73.9 Peripheral vascular disease, unspecified; Q82.8 Other specified congenital malformations of skin; E11.69 Type 2 diabetes mellitus with other specified complication; Z79.84 Long term (current) use of oral hypoglycemic drugs | CPT/HCPCS: 11721 ==

== ENCOUNTER → 2024-07-27 08:35 | Outpatient (BNVA) | payer MEDICARE, MEDICAID, SELFPAY | PROVIDERS: PCP Family Medicine; Visit Provider Podiatrist Foot & Ankle Surgery | DX: E11.69 Type 2 diabetes mellitus with other specified complication (principal); L60.3 Nail dystrophy; I73.9 Peripheral vascular disease, unspecified; Q82.8 Other specified congenital malformations of skin; Z79.84 Long term (current) use of oral hypoglycemic drugs | CPT/HCPCS: 11057; 11721 ==

== ENCOUNTER → 2024-09-28 08:37 | Outpatient (BNVA) | payer MEDICARE, MEDICAID, SELFPAY | PROVIDERS: PCP Family Medicine; Visit Provider Podiatrist Foot & Ankle Surgery | DX: E11.69 Type 2 diabetes mellitus with other specified complication (principal); L60.3 Nail dystrophy; Q82.8 Other specified congenital malformations of skin; I73.9 Peripheral vascular disease, unspecified; Z79.84 Long term (current) use of oral hypoglycemic drugs | CPT/HCPCS: 11056; 11721; 99213 ==

== ENCOUNTER → 2025-03-06 08:26 | Outpatient (BNVA) | payer MEDICARE, MEDICAID, SELFPAY | PROVIDERS: PCP Family Medicine; Visit Provider Podiatrist Foot & Ankle Surgery | DX: E11.8 Type 2 diabetes mellitus with unspecified complications (principal); L60.3 Nail dystrophy; Q82.8 Other specified congenital malformations of skin; I73.9 Peripheral vascular disease, unspecified; Z79.84 Long term (current) use of oral hypoglycemic drugs | CPT/HCPCS: 11055; 11721 ==

== ENCOUNTER 2025-03-08 11:02 | Outpatient (CLI) | payer MEDICARE, MEDICAID, SELFPAY ==
--- NOTE | 2025-03-08 11:11 | CT_ITS ---
WS: [id number] LDCT LUNG CANCER SCREENING HISTORY: HX OF TOBACCO USE TECHNIQUE: Axial imaging performed from the apices to 1 cm below the costophrenic angles. Coronal and sagittal reformats are submitted with axial MIP series. All CT scans at [facility] use at least one of these dose optimization techniques: automated exposure control; mA and/or kV adjustment per patient size (includes targeted exams where dose is matched to clinical indication); or iterative reconstruction. DLP: 132.28 mGy.cm DIvol: Mean CTDIvol: 3.30 (mGy) COMPARISON: 02/21/2024 Diagnostic quality: Satisfactory Lungs: There are a few scattered calcified granulomas and micronodules. No new mass or enlarging nodule. No endobronchial lesions. Linear atelectasis at the lingula. Heart: Normal size heart with no pericardial effusion.. Other findings: Mild atherosclerosis aorta. Normal size pulmonary artery. No adenopathy. Prior cholecystectomy. No adrenal mass. Suspect healing fracture in the LEFT lateral sixth rib. CT/CT lung screening [id number] IMPRESSION: LUNG-RADS: 2-Benign Appearance or Behavior FOLLOW UP: 12 Month: Continue annual screening with LDCT OTHER FINDINGS (S MODIFIER): None.
== END 2025-03-08 11:03 | disposition home or self-care (01) ==
PROVIDERS: PCP Family Medicine; Visit Provider Family Medicine
DX: Z12.2 Encounter for screening for malignant neoplasm of respiratory organs (principal); Z87.891 Personal history of nicotine dependence; I70.0 Atherosclerosis of aorta; Z90.49 Acquired absence of other specified parts of digestive tract
CPT/HCPCS: 71271